=== PATIENT | male | born 1950 | race Caucasian/White ===

== ENCOUNTER 2018-09-02 05:41 | Day surgery (SDC) | payer MEDICARE ==
[2018-09-01 14:09] VITALS: BP 117/51
[2018-09-02] VITALS (9 sets, daily range): BP systolic 118–147; BP diastolic 56–76
[~2018-09-02] VITALS: Ht 170.2 cm; Wt 101.0 kg
[~2018-09-02 05:41] MED LIST: ALEN70TA10 PO; AZEL137S11 NS; BACL10TA PO; FINA5TAB41 PO; FLUT15.88 NS; LACO200T2 PO; LEVE1000 PO; LEVE500T8 PO; LISI-613 PO; MONT10TA24 PO; NAPR-1023 PO; PANT40TA25 PO; PHEN100C23 PO; TAMS0.4C32 PO; TRAM50TA4 PO
[2018-09-02] MEDS ORDERED: ISOVUE-M 200 20 ML VIAL IT ONE (07:11)
== END 2018-09-02 12:20 | disposition home or self-care (01) ==
LOC: DAH 05:41
PROVIDERS: ATTEND Neurological Surgery
DX: M48.061 Spinal stenosis, lumbar region without neurogenic claudication (principal); M54.16 Radiculopathy, lumbar region; Z98.890 Other specified postprocedural states; Z79.899 Other long term (current) drug therapy
CPT/HCPCS: 62304; 72132; 82948; A4606; Q9966